=== PATIENT | female | born 1995 | race Caucasian/White ===

== ENCOUNTER → 2020-03-05 16:18 | Outpatient (BNVA) | payer BC, MEDICAID, SELFPAY | PROVIDERS: Family Provider Nurse Practitioner Family; PCP Nurse Practitioner Family; Visit Provider Nurse Practitioner Family | DX: R53.83 Other fatigue (principal); R21 Rash and other nonspecific skin eruption; L23.7 Allergic contact dermatitis due to plants, except food; R53.82 Chronic fatigue, unspecified | CPT/HCPCS: 84443 ==

== ENCOUNTER → 2020-03-11 15:55 | Outpatient (BNVA) | payer BC, MEDICAID, SELFPAY | PROVIDERS: Family Provider Nurse Practitioner Family; PCP Nurse Practitioner Family; Visit Provider Nurse Practitioner Family | DX: E07.9 Disorder of thyroid, unspecified (principal) | CPT/HCPCS: 84439; 84481; 85025 ==

== ENCOUNTER 2020-03-26 11:11 | Outpatient (CLI) | payer BC, MEDICAID, SELFPAY ==
--- NOTE | 2020-03-26 11:45 | US_ITS ---
WS: [id number] THYROID ULTRASOUND HISTORY: thyroid tenderness COMPARISON: None available. Right lobe: 5.6 cm x 1.6 cm x 1.4 cm. Volume: 6.5 cm3. Mildly heterogeneous gland. Official slightly hyperechoic nodule measuring 7 x 4 mm in the mid gland. Left lobe: 5.6 cm x 1.7 cm x 1.0 cm. Volume: 5.0 cm3. Normal size and echotexture. No significant or dominant nodules are present. Isthmus: 0.4 cm. US/US thyroid 30702 IMPRESSION: 1. Mildly coarsened echotexture throughout both thyroid lobes. 2. No dominant nodule. 3. Subcentimeter RIGHT thyroid nodule. Recommend follow-up ultrasound in one y ear.
== END 2020-03-26 11:12 | disposition home or self-care (01) ==
LOC: RAD 11:15
PROVIDERS: Family Provider Nurse Practitioner Family; PCP Nurse Practitioner Family; Visit Provider Nurse Practitioner Family
DX: E07.9 Disorder of thyroid, unspecified (principal); E04.1 Nontoxic single thyroid nodule
CPT/HCPCS: 76536

== ENCOUNTER → 2021-09-03 15:37 | Outpatient (BNVA) | payer OTHER, SELFPAY | PROVIDERS: Family Provider Nurse Practitioner Family; PCP Nurse Practitioner Family; Referring Provider Physician Assistant Medical; Visit Provider Obstetrics & Gynecology | DX: N97.9 Female infertility, unspecified (principal) | CPT/HCPCS: 83001; 83520; 84146; 84443 ==

== ENCOUNTER → 2021-09-14 15:53 | Outpatient (BNVA) | payer OTHER, SELFPAY | PROVIDERS: Family Provider Nurse Practitioner Family; PCP Nurse Practitioner Family; Visit Provider Obstetrics & Gynecology | DX: N97.9 Female infertility, unspecified (principal) | CPT/HCPCS: 76830 ==

== ENCOUNTER 2025-07-09 19:22 | Outpatient (CLI) | payer OTHER, SELFPAY ==
[2025-07-09 19:36] VITALS: BMI 34.5
[2025-07-09 19:37] VITALS: RESP 18
[2025-07-09 19:48] VITALS: BP 137/92; PULSE 109
[2025-07-09 20:03] VITALS: BP 121/77; PULSE 98
[2025-07-09 20:18] VITALS: BP 119/81; PULSE 101
== END 2025-07-09 20:25 | disposition home or self-care (01) ==
LOC: OPOB 19:25 → OBGYN 19:30
PROVIDERS: Family Provider Nurse Practitioner Family; PCP Nurse Practitioner Family; Visit Provider Family Medicine
DX: O26.859 Spotting complicating pregnancy, unspecified trimester (principal); Z3A.00 Weeks of gestation of pregnancy not specified
CPT/HCPCS: 59025; 99211

== ENCOUNTER 2025-09-10 10:11 | Outpatient (CLI) | payer OTHER, SELFPAY ==
[2025-09-10] VITALS (7 sets, daily range): BP systolic 131–147; BP diastolic 92–101; PULSE 94–111; RESP 17; O2SAT 98; BMI 35.7
[2025-09-10 10:43] LABS: Hematocrit 34.9 % (36-47); Hemoglobin 11.30 g/dL (11.27-16.99); Mean Corpuscular HGB Conc 32.4 g/dL (30-55); Mean Corpuscular Hemoglobin 28.4 pg (27-33); Mean Corpuscular Volume 87.7 fl (85-98); Nucleated Red Blood Cells % 0 %; Platelet Count 264 10^3/cmm (157-399); Red Blood Count 3.98 10^6/uL (3.85-5.65); White Blood Count 9.56 10^3/uL (3.29-11.43)
[2025-09-10 10:45] LABS: Glucose Urine UA Negative (Normal); Nitrate Urine Negative (Negative); Specific Gravity, Urine 1.010 (1.005-1.030)
[2025-09-10 10:48] LABS: Add Urine Microscopic? YES
[2025-09-10 11:01] LABS: Alanine Aminotransferase 9 U/L (0-33); Albumin Level 3.6 g/dL (3.5-5.2); Alkaline Phosphatase 143 U/L (35-105); Anion Gap 18.1 (5-19); Aspartate Amino Transferase 17 U/L (0-32); Blood Urea Nitrogen 4 mg/dL (6-20); Calcium 9.1 mg/dL (8.5-10.5); Carbon Dioxide 19 mmol/L (22-29); Chloride 102 mmol/L (98-107); Creatinine Clr Calc Pharmacy 188.4110; Globulin 3.2 g/dL (1.3-4.6); Glucose 80 mg/dL (65-115); Osmolality Calculated 276 mOsm/kg (285-295); Potassium 4.1 mmol/L (3.5-5.1); Sodium 135 mmol/L (136-145); Total Protein 6.8 g/dL (6.6-8.7); Uric Acid 3.4 mg/dL (2.4-5.7)
[2025-09-10 11:07] LABS: UPRO/UCREAT Ratio 0.14 mg/mg CR
== END 2025-09-10 11:32 | disposition home or self-care (01) ==
LOC: OPOB 10:11 → OBGYN 10:12
PROVIDERS: Family Provider Nurse Practitioner Family; PCP Nurse Practitioner Family; Visit Provider Family Medicine
DX: O13.9 Gestational [pregnancy-induced] hypertension without significant proteinuria, unspecified trimester (principal); Z3A.00 Weeks of gestation of pregnancy not specified
CPT/HCPCS: 36415; 59025; 80053; 81001; 82570; 84156; 84550; 85025; 87086; 99211

== ENCOUNTER 2025-09-17 12:07 | Inpatient (IN) | payer OTHER, MEDICAID, SELFPAY ==
[2025-09-17] VITALS (88 sets, daily range): BP systolic 120–171; BP diastolic 78–115; PULSE 100–129; RESP 16–18; TEMP 36.6–36.8; O2SAT 89–100; BMI 36.2
[2025-09-17 10:54] LABS: Glucose Urine UA Negative (Normal); Nitrate Urine Negative (Negative); Specific Gravity, Urine 1.014 (1.005-1.030)
[2025-09-17 10:57] LABS: Hematocrit 31.5 % (36-47); Hemoglobin 10.40 g/dL (11.27-16.99); Mean Corpuscular HGB Conc 33.0 g/dL (30-55); Mean Corpuscular Hemoglobin 28.4 pg (27-33); Mean Corpuscular Volume 86.1 fl (85-98); Nucleated Red Blood Cells % 0 %; Platelet Count 253 10^3/cmm (157-399); Red Blood Count 3.66 10^6/uL (3.85-5.65); White Blood Count 11.79 10^3/uL (3.29-11.43)
[2025-09-17 10:59] LABS: Add Urine Microscopic? YES
[2025-09-17 11:11] LABS: Alanine Aminotransferase 7 U/L (0-33); Albumin Level 3.2 g/dL (3.5-5.2); Alkaline Phosphatase 126 U/L (35-105); Anion Gap 14.0 (5-19); Aspartate Amino Transferase 12 U/L (0-32); Blood Urea Nitrogen 4 mg/dL (6-20); Calcium 8.6 mg/dL (8.5-10.5); Carbon Dioxide 18 mmol/L (22-29); Chloride 109 mmol/L (98-107); Creatinine Clr Calc Pharmacy 189.8121; Globulin 2.6 g/dL (1.3-4.6); Glucose 82 mg/dL (65-115); Osmolality Calculated 280 mOsm/kg (285-295); Potassium 4.0 mmol/L (3.5-5.1); Sodium 137 mmol/L (136-145); Total Protein 5.8 g/dL (6.6-8.7); Uric Acid 3.5 mg/dL (2.4-5.7)
[2025-09-17 11:14] LABS: UPRO/UCREAT Ratio 0.13 mg/mg CR
--- NOTE | 2025-09-17 13:12 | P.ANESASSM_ITS ---
Pre-Anesthetic Assessment Height/Weight: Height 5 ft 5 in Weight 218 lb Pulse BP O2 Del Method 100 138/94 Room Air 09/17/25 11:50 09/17/25 11:50 09/17/25 10:08 Anesthetic Plan ASA status: 3 Anesthesia: Regional (specify below) Other: Add-on today for pre-E BP 138/94 NPO since Labs reviewed from today and assessable for procedure Plan for with spinal Medications/Allergies Home Medications ?Medication ?Instructions ?Recorded ?Confirmed ?Last Taken ?Type lrelkyuv-rej-Ai-FA 1 mg 1 tab PO DAILY 09/17/25 09/17/25 History tablet 0700 aspirin 81 mg capsule 81 mg PO DAILY 09/17/2504/0609/17/25 07:00 History Allergies Allergy/AdvReac Type Severity Reaction Status Date / Time No Known Allergies Allergy Verified 09/03/21 14:44 [facility] Anesthesia Medical History (Updated 09/09/21 @ 11:10 by Edwar Castro MD) Infertility, female Family History (Updated 09/03/21 @ 14:47 by Suha Perales RN) Father Hypertension Grandfather Heart disease paternal Denies family history of Colon cancer Ovarian cancer Diabetes Clotting disorder Hyperlipidemia Breast cancer Anesthesia complication Bleeding disorder Uterine cancer Thyroid disease Stroke Social History (Updated 09/03/21 @ 14:47 by Suha Perales RN) Smoking and tobacco/nicotine status: never used tobacco/nicotine Alcohol intake: never Substance/Drug Use: never Do you think of yourself as: Straight/Heterosexual Female Reproductive History : 2 Data Anesthesia 09/17/25 10:30 09/17/25 10:30 Short CBC 09/17/25 Range/Units 10:30 WBC 11.79 H (3.29-11.43) 10^3/uL Hgb 10.40 L (11.27-16.99) g/dL Hct 31.5 L (36-47) % MCV 86.1 (85-98) fl Plt Count 253 (157-399) 10^3/cmm Neut % (Auto) 80.7 % Neut # (Auto) 9.51 H (1.8-7.7) 10^3/uL BMP 09/17/25 10:30 Sodium 137 Potassium 4.0 Chloride 109 H Carbon Dioxide 18 L BUN 4 L Creatinine 0.5 Glucose 82 Calcium 8.6 Liver Function 09/17/25 Range/Units 10:30 Total Bilirubin 0.2 (0.15-1.2) mg/dL AST 12 (0-32) U/L ALT 7 (0-33) U/L Alkaline Phosphatase 126 H (35-105) U/L Albumin 3.2 L (3.5-5.2) g/dL Urine 09/17/25 Range/Units 10:30 Urine Color Yellow (Yellow) Urine Appearance Clear (CLEAR) Urine pH 7.5 (5-7) Ur Specific [place] 1.014 (1.005-1.030) Urine Protein Negative (Negative) Urine Glucose (UA) Negative (Normal) Urine Ketones Negative (Negative) Urine Nitrate Negative (Negative) Urine Bilirubin Negative (Negative) Ur Leukocyte Esterase 3+ A (Negative) Urine RBC 0-2 (0-2) /hpf Urine WBC 11-20 H (0-5) /hpf
[2025-09-17] MEDS: metoclopramide 5 mg/mL SDV 2 mL 10 MG IV (14:48)
--- NOTE | 2025-09-17 14:54 | PM.OBGYHP ---
Providers/Chief Complaint Admitting Physician: Hollis Morataya MD Chief Complaint: Gestational hypertension HPI [employer] History of Present Illness Martha Harkins is a 30 year old 2 para 1-0-0-1 female at 37 weeks estimated gestational age presenting to the OB department with gestational hypertension. She was seen in the office today. She once again was found to have multiple elevated blood pressures. She was sent to the OB department for further evaluation. She continued to have elevated blood pressures. Her preeclamptic workup was within normal limits. She has a history of a section and was scheduled to have a repeat section in 2 weeks. Present Details : 2 Para: 1 Labs Rubella: Immune RPR: Negative GBS: Positive Review of Systems General: Reports: 10 or more systems reviewed and unremarkable except in HPI and below Const: Reports: fatigue; Denies: fever(s) Eyes: Denies: change in vision Card: Denies: chest pain Musc: Reports: back pain Juanito/Lymph: Denies: easy bruising Medications/Allergies Home Medications ?Medication ?Instructions ?Recorded ?Confirmed ?Last Taken ?Type iwzxlumw-axf-Aw-FA 1 mg 1 tab PO DAILY 09/10/25 09/17/25 09/17/25 History tablet 0700 aspirin 81 mg capsule 81 mg PO DAILY 09/17/25 09/17/25 09/17/25 07:00 History Allergies Allergy/AdvReac Type Severity Reaction Status Date / Time No Known Allergies Allergy Verified 09/03/21 14:44 PFSH [employer] PFSH: Medical History Infertility, female Surgical History (Updated 09/17/25 @ 14:57 by Hollis Morataya MD) H/O section 2012 Family History Father Hypertension Grandfather Heart disease paternal Denies family history of Colon cancer Ovarian cancer Diabetes Clotting disorder Hyperlipidemia Breast cancer Anesthesia complication Bleeding disorder Uterine cancer Thyroid disease Stroke Social History Smoking and tobacco/nicotine status: never used tobacco/nicotine Alcohol intake: never Substance/Drug Use: never Do you think of yourself as: Straight/Heterosexual Other Female Reproductive History: Hx Age of Menarche: 13 Duration of menses: other (5-7 days ) Cycle Length: LMP 05/2021, irregular Menstrual flow: normal/abnormal: heavy History History History 2 Term 1 0 Miscarriages/Ectopic 0 Living Children 1 Vitals/I&O/Wt Last Vital Signs Pulse 106 H 09/17/25 14:35 BP 120/78 09/17/25 14:35 O2 Del Method Room Air 09/17/25 10:08 Weight last 48 hrs Weight 218 lb Physical Exam Const: COMMON NORMALS: patient oriented x3 and alert HENMT: COMMON NORMALS: moist oral mucous membranes HEAD & SCALP: normal to inspection Chest: COMMONS NORMALS: normal inspection of the chest Resp: COMMON NORMALS: clear to auscultation bilaterally AUSCULTATION: clear to auscultation bilaterally Cardio: COMMON NORMALS: regular rate and regular rhythm RATE: regular rate RHYTHM: regular rhythm GI: INSPECTION: Yes normal to inspection and Yes other (Gravid) Extremity: COMMON NORMALS: normal to inspection GENERAL: Yes edema (Trace) Neuro: COMMON NORMALS: patient oriented x3, moves all extremities and no sensory deficits noted SENSORIUM/ORIENTATION: Yes alert Psych: COMMON NORMALS: mental status grossly normal Skin: COMMON NORMALS: no rashes or lesions noted GENERAL SKIN EXAM: no rashes or lesions noted Data 09/17/25 10:30 09/17/25 10:30 Results Labs OB ([facility]): Blood Type Pending Today Antibody Screen Pending Today Hct, (36-47) 31.5 % L Today Hgb, (11.27-16.99) 10.40 g/dL L Today Rho(D) Type Pending Today Plt Count, (157-399) 253 10^3/cmm Today Uric Acid, (2.4-5.7) 3.5 mg/dL Today Micro Urine Specimen 09/10/25 A&P Assessment and plan 1. 37 weeks gestation of : We will proceed with a repeat section since she is 37 weeks with gestational hypertension. We have discussed the risks of the procedure including the risk of bleeding, infection, and damage to intra-abdominal organs. She and the father of the baby have no further questions. 2. H/O section: 3. Gestational hypertension affecting second : PDMP PDMP Reviewed: Not Reviewed Attestations Medical Necessity Statement*: I anticipate routine and post care. This may change if her gestational hypertension develops into preeclampsia. Coding Level of Care Code Acute Code for Chg Fwd Diagnoses 37 weeks gestation of Z3A.37 H/O section Z98.891 Gestational hypertension affecting second O13.9
[2025-09-17] MEDS: BUPivacaine 0.5% INJ 30 mL INJECTION (15:15)
--- NOTE | 2025-09-17 16:56 | PM.OP ---
Operative Report Date of procedure: September 17, 2025 Pre-op diagnosis: 1. 30-year-old 2 para 1-0-0-1 at 37 weeks estimated gestational age 2. Gestational hypertension 3. History of low-transverse section desiring repeat 4. Desire sterilization Post-op diagnosis: Status post low-transverse section and intraoperative bilateral tubal ligation Procedure done: Repeat low-transverse section and intraoperative bilateral tubal ligation using modified [place] technique Specimens removed/disposition: 1. Male with a weight of 6 pounds 0 ounces and Apgars of 8 and 9 2. Placenta with a three-vessel cord delivered intact 3. Bilateral fallopian tube segments with the right segment being tagged Pathology: Bilateral fallopian tube segments with the right segment being tagged Surgeon: Hollis Morataya MD Estimated blood loss (mL): 600 Complications: None Procedure: The patient was brought back to the operating room where she was prepped and draped in usual sterile fashion. Anesthesia was found to be adequate. A lower transverse skin incision was then made with a #10 blade. I then dissected down to the underlying subcutaneous tissue until arriving at the prerectal fascia. The fascia was then nicked with the scalpel bilaterally. The fascial incisions were then carried laterally with Duarte scissors. Attention was then turned to the superior aspect of the incision which was grasped with kochers and tented up away from the underlying rectus abdominis muscles. The muscles were then dissected away from the fascia manually, and later with Duarte scissors. Attention was then turned to the inferior aspect of the incision, and the fascia was dissected away from the underlying muscle in similar fashion. The rectus abdominis muscles were then spread manually. The peritoneum was entered manually. Excellent visualization of the uterus was noted. A lower transverse uterine incision was then made with a #10 blade. Upon arriving at the intrauterine cavity, the uterine incision was then extended manually. The infant was noted to be in vertex position. The baby was delivered without difficulty and placed on the mother's abdomen. There was no meconium. There was a nuchal cord x 1 which was reduced prior to delivery of the shoulders. The cord was cut and clamped. The baby was then handed to the waiting nurse. The placenta was removed intact. The uterus was externalized. The intrauterine cavity was cleansed of any remaining debris. The lower uterine segment was very thin. As a result the uterine incision was reapproximated in 1 layer with 0 Vicryl in a running locked stitch. A gnqoip-[id number] stitch was used to maintain excellent hemostasis. Attention was then turned to the right fallopian tube which which was ligated and cut and cauterized in a modified [place] fashion. Attention was then turned to the left fallopian tube which was also ligated cut and cauterized in similar fashion. The uterus was replaced into the abdomen. The peritoneum was then irrigated with warm saline. I reexamined the uterine incision and found it to be hemostatic. The rectus abdominis muscles were then reapproximated using 0 Vicryl in a running stitch. The fascia was then reapproximated using 0 Vicryl in running stitch. The subcutaneous tissue was then reapproximated using 0 Vicryl in a running stitch. The skin was reapproximated using marty. A sterile dressing was placed. All counts were correct x2. Both the mother and baby were in stable condition.
--- NOTE | 2025-09-17 23:45 | PC.NURSE ---
Patient ambulated in halls, with nurse, full lap around unit without difficulty. Returned to room and back to bed.
[2025-09-18] VITALS: BP 144/80; PULSE 103; RESP 16; O2SAT 96
[2025-09-18 02:00] VITALS: BP 119/86; PULSE 108; RESP 16; O2SAT 96
[2025-09-18 04:03] LABS: Hematocrit 28.6 % (36-47); Hemoglobin 9.30 g/dL (11.27-16.99); Mean Corpuscular HGB Conc 32.5 g/dL (30-55); Mean Corpuscular Hemoglobin 29.0 pg (27-33); Mean Corpuscular Volume 89.1 fl (85-98); Platelet Count 193 10^3/cmm (157-399); Red Blood Count 3.21 10^6/uL (3.85-5.65); White Blood Count 17.39 10^3/uL (3.29-11.43)
[2025-09-18] MEDS: PRENATAL VIT NO.130/IRON/FOLIC 1 EACH TABLET PO (04:50)
[2025-09-18 06:00] VITALS: BP 122/78; PULSE 97; RESP 16; TEMP 36.7; O2SAT 95
--- NOTE | 2025-09-18 07:35 | P.DS_ITS ---
Discharge Providers DIRECTOR HR COMMUNICATIONS Date of Admission: 09/17/25 12:07 Date of Discharge: 09/18/25 Attending Provider at Admission: Hollis Morataya MD Attending Provider at Discharge: Hollis Morataya MD Diagnoses at Discharge Discharge Diagnosis 1. 37 weeks gestation of : 2. H/O section: 3. Gestational hypertension affecting second : Reason for Visit Reason for Visit: Gestational hypertension Hospital Course Hospital Course The patient presented to the hospital from the office due to having elevated blood pressures. She continued to have elevated blood pressures in the hospital. Her preeclamptic workup was negative. The decision was made to proceed with a Repeat lower transverse section. Her was unremarkable. Her postoperative course was also unremarkable. Her pain is well- controlled. Her blood pressures have been gradually improving. She has had no other signs of preeclampsia. Her bili was within normal limits. She passed flatus. She tolerated a regular diet. Information Peripartum Data: Infant Delivery Method: Physical Exam Narrative: She is in no acute distress Lungs are clear auscultation bilaterally Her heart has a regular rate and rhythm Her fundus is below the umbilicus and firm Her dressing is clean, dry and intact Her extremities have trace edema Urinary Catheter Management: Rodriguez: Cath Placed During This Visit: yes, but has since been removed by the nurse Reason for Continuing Indwelling Catheter: Decision to DC Catheter Urinary Catheter Date of Insertion: 09/17/25 Urinary Catheter Time of Insertion: 15:08 Date Urinary Catheter Removed: 09/18/25 Time Urinary Catheter Discontinued: 06:00 History History History 2 Term 1 0 Miscarriages/Ectopic 0 Living Children 1 Discharge Data Studies Completed and Pending Pending at discharge Category Date Time Status Retype for Patiets ABO/Rh Routine Lab 09/17/25 17:04 Ordered Pathology: Surgical [PTH] Routine Pth 09/17/25 17:28 Ordered Laboratory Results WBC 17.39 10^3/uL (3.29-11.43) H 09/18/25 03:50 RBC 3.21 10^6/uL (3.85-5.65) L 09/18/25 03:50 Hgb 9.30 g/dL (11.27-16.99) L 09/18/25 03:50 Hct 28.6 % (36-47) L 09/18/25 03:50 MCV 89.1 fl (85-98) 09/18/25 03:50 MCH 29.0 pg (27-33) 09/18/25 03:50 MCHC 32.5 g/dL (30-55) 09/18/25 03:50 RDW 12.9 % (12.1-15.1) 09/18/25 03:50 Plt Count 193 10^3/cmm (157-399) 09/18/25 03:50 MPV 10.1 fL (7.4-10.4) 09/18/25 03:50 Neut % (Auto) 80.7 % 09/17/25 10:30 Lymph % (Auto) 12.6 % 09/17/25 10:30 [place] % (Auto) 5.5 % 09/17/25 10:30 Eos % (Auto) 0.6 % 09/17/25 10:30 Baso % (Auto) 0.2 % 09/17/25 10:30 Neut # (Auto) 9.51 10^3/uL (1.8-7.7) H 09/17/25 10:30 Lymph # (Auto) 1.5 10^3/uL (0.8-4.8) 09/17/25 10:30 [place] # (Auto) 0.7 10^3/uL (0.2-0.9) 09/17/25 10:30 Eos # (Auto) 0.1 10^3/uL (0.0-0.8) 09/17/25 10:30 Baso # (Auto) 0.0 10^3/uL (0.0-0.1) 09/17/25 10:30 Nucleated RBC % (auto) 0 % 09/17/25 10:30 Nucleated RBCs # 0.0 /100WBC 09/17/25 10:30 Sodium 137 mmol/L (136-145) 09/17/25 10:30 Potassium 4.0 mmol/L (3.5-5.1) 09/17/25 10:30 Chloride 109 mmol/L (98-107) H 09/17/25 10:30 Carbon Dioxide 18 mmol/L (22-29) L 09/17/25 10:30 Anion Gap 14.0 (5-19) 09/17/25 10:30 BUN 4 mg/dL (6-20) L 09/17/25 10:30 Creatinine 0.5 mg/dL (0.5-0.9) 09/17/25 10:30 GFR Calculation 143.9 mL/min (90-130) H 09/17/25 10:30 Glucose 82 mg/dL (65-115) 09/17/25 10:30 Calculated Osmolality 280 mOsm/kg (285-295) L 09/17/25 10:30 Uric Acid 3.5 mg/dL (2.4-5.7) 09/17/25 10:30 Calcium 8.6 mg/dL (8.5-10.5) 09/17/25 10:30 Total Bilirubin 0.2 mg/dL (0.15-1.2) 09/17/25 10:30 AST 12 U/L (0-32) 09/17/25 10:30 ALT 7 U/L (0-33) 09/17/25 10:30 Alkaline Phosphatase 126 U/L (35-105) H 09/17/25 10:30 Total Protein 5.8 g/dL (6.6-8.7) L 09/17/25 10:30 Albumin 3.2 g/dL (3.5-5.2) L 09/17/25 10:30 Globulin 2.6 g/dL (1.3-4.6) 09/17/25 10:30 Urine Color Yellow (Yellow) 09/17/25 10:30 Urine Appearance Clear (CLEAR) 09/17/25 10:30 Urine pH 7.5 (5-7) 09/17/25 10:30 Ur Specific [place] 1.014 (1.005-1.030) 09/17/25 10:30 Urine Protein Negative (Negative) 09/17/25 10:30 Urine Glucose (UA) Negative (Normal) 09/17/25 10:30 Urine Ketones Negative (Negative) 09/17/25 10:30 Urine Blood Non-haemolysed trace (Negative) 09/17/25 10:30 Urine Nitrate Negative (Negative) 09/17/25 10:30 Urine Bilirubin Negative (Negative) 09/17/25 10:30 Urine Urobilinogen 1.0 mg/dL (Negative) 09/17/25 10:30 Ur Leukocyte Esterase 3+ (Negative) A 09/17/25 10:30 Urine RBC 0-2 /hpf (0-2) 09/17/25 10:30 Urine WBC 11-20 /hpf (0-5) H 09/17/25 10:30 Ur Squamous Epith Cells 11-20 /hpf (0-5) H 09/17/25 10:30 Amorphous Sediment Not Reportable 09/17/25 10:30 Urine Bacteria Trace /hpf (NONE) 09/17/25 10:30 Hyaline Casts 0.40 /lpf 09/17/25 10:30 U Random Total Protein 10 mg/dL 09/17/25 10:30 Urine Creatinine 76 mg/dL (28-217) 09/17/25 10:30 Protein/Creatinin Ratio 0.13 mg/mg CR 09/17/25 10:30 Blood Type A Positive 09/17/25 10:30 Rho(D) Type Rh positive 09/17/25 10:30 Antibody Screen Negative 09/17/25 10:30 Vitals Last Vital Signs Temp 98.0 F 09/18/25 06:00 Pulse 97 09/18/25 06:00 Resp 16 09/18/25 06:00 BP 122/78 09/18/25 06:00 Pulse Ox 95 09/18/25 06:00 O2 Del Method Room Air 09/18/25 06:00 Results Labs OB ([facility]): Blood Type A Positive 09/17/25 Antibody Screen Negative 09/17/25 Hct, (36-47) 28.6 % L Today Hgb, (11.27-16.99) 9.30 g/dL L Today Rho(D) Type Rh positive 09/17/25 Plt Count, (157-399) 193 10^3/cmm Today Uric Acid, (2.4-5.7) 3.5 mg/dL 09/17/25 Micro Urine Specimen 09/10/25 Discharge Plan Discharge Patient Disposition: Home Condition: Stable Prescriptions: New ibuprofen 800 mg Tablet 800 mg PO TID Qty: 45 0RF hydrocodone-acetaminophen 5-325 mg Tablet 1 tab PO Q6H PRN (Reason: Moderate To Severe Pain) Qty: 28 0RF docusate sodium 100 mg Capsule 100 mg PO BID Qty: 14 0RF Continued rmoxbbve-gaw-Cb-FA 1 mg Tablet 1 tab PO DAILY Discontinued aspirin 81 mg Capsule 81 mg PO DAILY Referrals: Hollis Morataya MD [Physician, Family Practice] - 09/24/25 Referral Note: Coordinate with baby's visit. Discharge Diet: Usual diet Discharge Activity: Limit activity as instructed Patient Instructions: Depression (DC), Bleeding (DC), Preeclampsia and Eclampsia After Delivery (GEN), Hemorrhage (DC), OB - [place], OB Discharge Report, OB Food/Drug Interaction Guide, Opioid Safety, OB Home Care, OB Proud Parent Packet, Patient Portal & Vel Instructions Discharge Attestations DIRECTOR HR COMMUNICATIONS Time Spent in Discharge Care*: less than 30 min Coding Level of Care Code Acute Code for Chg Fwd Diagnoses 37 weeks gestation of Z3A.37 H/O section Z98.891 Gestational hypertension affecting second O13.9
[2025-09-18] MEDS: ferrous sulfate EC 325 mg Tablet PO (10:20)
[2025-09-18 10:25] VITALS: BP 123/79; PULSE 92; RESP 16; TEMP 36.8; O2SAT 97
[2025-09-18 17:05] VITALS: BP 138/86; PULSE 101; RESP 16; TEMP 36.6; O2SAT 97
[2025-09-19 17:49] LABS: High Risk PP Hemorrhage BBK Notified
== END 2025-09-18 17:40 | disposition home or self-care (01) | DRG 785 ==
LOC: OPOB 12:08 → OBGYN 12:08
PROVIDERS: Admitting Provider Family Medicine; Family Provider Nurse Practitioner Family; Visit Provider Family Medicine
PROC: 10D00Z1 Extraction of Products of Conception, Low, Open Approach (ICD-10-PCS; CPT 59514; principal; 2025-09-17 15:00)
DX: O13.4 Gestational [pregnancy-induced] hypertension without significant proteinuria, complicating childbirth (principal); O34.211 Maternal care for low transverse scar from previous cesarean delivery; N85.8 Other specified noninflammatory disorders of uterus; Z3A.37 37 weeks gestation of pregnancy; Z37.0 Single live birth; O69.81X0 Labor and delivery complicated by cord around neck, without compression, not applicable or unspecified
CPT/HCPCS: 36415; 51702; 59025; 59409; 80053; 81001; 82570; 84156; 84550; 85025; 85027; 86850; 86900; 88302; 96374; 96376; 99211; J1100; J1885; J2274; J2405; J2765; J3010; J3490; J7030; J7120; J7121; J9999